=== PATIENT | male | born 1950 | race African-American/Black ===

== ENCOUNTER 2020-02-23 10:34 | Emergency (ER) | payer MEDICARE ==
[~2020-02-23] VITALS: Ht 177.8 cm; Wt 95.0 kg
[2020-02-23 10:48] VITALS: BP 149/73
[2020-02-23] MEDS ORDERED: TETANUS, DIPHTHERIA, PERTUSSIS VAC/PF 0.5ML (>7YR OLD) IM ONE (11:15)
[2020-02-23] MEDS ORDERED: CEPHALEXIN 250MG CAPSULE PO ONE (11:15)
[2020-02-23] MEDS ORDERED: BACITRACIN ZINC OINT UDPKT TOP ONE (11:15)
== END 2020-02-23 11:54 | disposition home or self-care (01) ==
LOC: ER 10:34
DX: S61.012A Laceration without foreign body of left thumb without damage to nail, initial encounter (principal); W26.8XXA Contact with other sharp object(s), not elsewhere classified, initial encounter; Y93.89 Activity, other specified; Y92.010 Kitchen of single-family (private) house as the place of occurrence of the external cause
CPT/HCPCS: 90471; 90715; 99283